=== PATIENT | female | born 1955 | race Two or more races ===

== ENCOUNTER 2025-03-28 10:00 | Inpatient (IN) | payer MEDICARE, SELFPAY ==
[2025-03-15 09:09] LABS: Hematocrit 35.0 % (37.0-47.0); Hemoglobin 11.9 g/dL (12.0-16.0); Mean Corp Hgb Conc. 34.0 g/dL (33.0-37.0); Mean Corpuscular Volume 97.5 fL (81.0-99.0); Platelet Count 306 10^3/uL (130-400); Red Cell Dist. Width 13.7 % (11.5-14.5)
[2025-03-15 09:36] LABS: ALT (SGPT) 18 U/L (0-35); AST (SGOT) 25 U/L (14-36); Albumin 4.3 g/dl (3.5-5.0); Alkaline Phosphatase 62 U/L (38-126); Blood Urea Nitrogen 10 mg/dl (7-17); Calcium 9.7 mg/dl (8.4-10.2); Carbon Dioxide 26 mmol/L (22-30); Chloride 104 mmol/L (98-107); Glucose 91 mg/dl (70-99); Potassium 4.2 mmol/L (3.5-5.1); Sodium 135 mmol/L (135-145); Total Protein 6.7 g/dl (6.3-8.2); eGFR > 60.00
[2025-03-15 13:58] VITALS: BMI 33.7
[2025-03-15 14:50] VITALS: BMI 33.7
[2025-03-28] VITALS (18 sets, daily range): BP systolic 135–219; BP diastolic 66–112; BMI 33.7
--- NOTE | 2025-03-28 09:21 | W.PN.UPDATE ---
Update Note
Progress Note Update
Lumbar spondylolisthesis s/p L4-L5 TLIF w/ Dr Ayers 03/28/25
DVT prophylaxis - b/l SCDs/TEDs
HTN - + parameters - monitor BP
Mild anemia - H&H in AM
Mild valvular disease
L hip fx s/p repair
R shoulder fx s/p repair
Hyperparathyroidism s/p parathyroidectomy
Obesity, BMI 33.7
Daily vape user
Cannibis dependence
[2025-03-28] MEDS: NORMOSOL-R/PLASMALYTE-A 1000 IV ×2 (11:45→16:53)
--- NOTE | 2025-03-28 14:59 | OR.RPT ---
Operative Report
Operative Report
HEALTH TECHNICIAN: VERONICA Loredo served as assistant credit manager for this procedure as no suitable resident or fellow was able to be identified
PREOPERATIVE DIAGNOSES:
1. Lumbar spinal stenosis L4-L5
2. Degenerative spondylolisthesis L4-5
POSTOPERATIVE DIAGNOSES:
Same
NAME OF OPERATION:
1. Posterior spinal decompression consisting of laminectomy L4-L5
2. Posterior interbody arthrodesis, L4-5 with local autograft (same incision and allograft).
3. Posterior nonsegmental instrumentation, L4-5 (Nuvasive Reline)
4. Application of biomechanical device, L4-5 (Nuvasive oblique cage).
ANESTHESIA: General endotracheal.
ESTIMATED BLOOD LOSS: 50 mL.
SPECIMENS: None.
DISPOSITION: Stable, extubated to PACU.
COMPLICATIONS: None.
NEUROMONITORING: EMG probing of pedicle, screws all with values at normal ranges from baseline the entirety of the procedure along with SSEP monitoring.
INDICATIONS: This patient is a 70 year old femalwith back pain and radiation into her left leg have worsened over the last 6 months. She has constant numbness and tingling in her left leg, and numbness down the posterior aspects of her legs. She
has difficulty sleeping due to the increased discomfort. She has been ambulating with a cane for approximately one year. Symptoms were worse upon standing or lumbar extension and she had an intact motor sensory exam of the bilateral lower
extremities. Imaging demonstrated degenerative spondylolisthesis at L4-5 . MRI demonstrated central and bilateral lateral recess stenosis at the L4-L5 level. As patient had subjective, objective and corroborative imaging evidence of a lumbosacral
radiculopathy and axial low back pain from degenerative spondylolisthesis and concomitant lumbar spinal stenosis, surgical treatment was offered. The patient understood the benefits, alternatives and the risks of the procedure, with risks including
but not limited to risk of anesthesia, infection, nerve damage, blood vessel damage, dural tear, blindness, need for further surgery, failure of instrumentation, failure of fusion, adjacent level problems. She elected to proceed after undergoing
preoperative medical clearance.
SURGICAL TECHNIQUE: The patient was identified in the preoperative holding area. The site of surgery and consent verified with the patient. She was then brought to the Operating Room by the Anesthesia and Orthopedic services. General anesthesia was
administered. The patient intubated without difficulty. RUBEN and SCDs stockings were placed for mechanical DVT prophylaxis, as well as a sterilely inserted Hwang catheter. She was also fitted with neuromonitoring leads for triggered EMG probling of
pedicle screw tracts. She was then positioned prone onto a El table with bony prominences well padded. Her abdomen hanging free, his back was prepped and draped in the usual sterile standard fashion. A hard stop surgical timeout performed with
all members of the Operating Room staff. Perioperative antibiotics given prior to surgery were started.
Intraoperative fluoroscopy was then used to localize over the bilateral L4 and L5 pedicles. Jamshidi needles were used to cannulate the pedicles, followed by placement of a guidewire checked on AP and lateral fluoroscopic imaging to ensure adequate
placement within the pedicles. These guidewires were then tacked down and the incision between the L4 and the L5 screws on the left side was widened to allow placement of upsizing screw based retractors to , centered over the L4-5 facet joint,
checked on AP and lateral fluoroscopic imaging.
Decompression was then performed by use of a neural harjeet down the lamina as well as the entirety of the inferior facet of L4 and the top half of the superior facet of L5 on the left side. This bone was saved for use as autograft later in the
procedure. On the left side, the harjeet facet of L4 was taken down with a neural harjeet. The flavum was left intact until burring was complete out to the lateral recesses, which allowed it to be teased off from the undersurface of the remaining cephalad
aspect of the L4 lamina. Multiple passes were then taken with a micro-angled curette 2 and 3 Kerrison rongeurs and large places of labeled tissue as well as hypertrophied capsular tissue were able to be removed from the bilateral lateral recesses.
The traversing nerve roots of L5 were visualized on both sides. The tube was then directed over the left L4-5 foramen. Bipolar cautery used to create excellent hemostasis of the epidural venous plexus. This allowed visualization of the L4-5 disc as
well as the traversing L5 root and the exiting L4 root. Care was taken to preserve the neural elements and a discectomy was performed first with annulotomy with a 15 blade followed by upsizing trial paddle leyda and paddle distractors. Bilateral
and superior inferior endplates were cleaned of cartilaginous tissue with straight left and right going angled curettes, as well as straight and up-biting pituitary to remove anymore disc material.
Trial cages were then placed, checked on AP and lateral fluoroscopic imaging to ensure appropriate selection of side. The actual graft was then selected in this evacuated disc space, allograft along with salvage local autograft was packed anteriorly
into the disc space, followed by the cage, which was also packed with bone graft material. The cage was then placed across the midline and expanded until its final torque.
Instrumentation was then completed, consisting of placement of the a tap and an appropriate length screw over the L4 and L5 guidewires, excellent purchase was noted. Triggered EMG of the demonstrated values all above threshold. An appropriate length
and contoured sophia was then set down on either side, set down with the appropriate set screws and finally tightened. Final AP and lateral fluoroscopic imaging demonstrated adequate positioning of all instrumentation.
The wound was then irrigated with 500 mL of normal saline. Wound was closed in sequential fashion with 0 Vicryl, 2-0 Vicryl and 3-0 Monocryl for the skin. Dry sterile dressing was applied. She was then flipped back over supine on the hospital table
and x-rayed with difficulty, had purposeful movement of all four extremities prior to leaving the Operating Room.
I attest that I present for and performed all rodrigues and critical aspects of the procedure.
[2025-03-28] MEDS: DILAUDID 0.5 MG IV (15:46)
[2025-03-28] MEDS: TORADOL 30 MG IV (15:53)
--- NOTE | 2025-03-28 17:05 | PTCARENOTE ---
Pt arrived to 2S in bed. Full assessment completed. Back DSG C/D/I. Pt reporting tingling to b/l feet, neurovascular assessment otherwise WDL. Nasal cannula maintained. IVF initiated. Bed locked and in the lowest position, safety maintained.
Oriented to room and call barry. Call barry within reach.
[2025-03-28] MEDS: NEURONTIN 600 MG PO ×2 (17:11→21:10)
[2025-03-28] MEDS: CORGARD 20 MG PO (17:11)
[2025-03-28] MEDS: ULTRAM 50 MG PO (17:12)
--- NOTE | 2025-03-28 18:25 | PTCARENOTE ---
Addendum entered by Iraida Schwarz RN 03/28/25 19:04:
Dr. Ayers notified.
Original Note:
A red vape pen fell onto the floor from pts blankets while attempting to stand pt. Two more vapes within pts possession. Security notified and secured objects per protocol. Dr Medrano notified. Care ongoing.
[2025-03-28] MEDS: SENOKOT 17.2 MG PO (19:27)
[2025-03-28] MEDS: COLACE 100 MG PO (19:27)
[2025-03-28] MEDS: ANCEF 5 IV (19:27)
[2025-03-28] MEDS: ROXICODONE 5 MG PO (21:11)
[2025-03-28] MEDS: PEPCID 20 MG PO (21:11)
[2025-03-28] MEDS: TYLENOL 1000 MG PO (21:13)
[2025-03-29] MEDS: ULTRAM 50 MG PO ×3 (00:33→12:36)
[2025-03-29] MEDS: NORMOSOL-R/PLASMALYTE-A 1000 IV (00:51)
[2025-03-29 03:10] VITALS: BP 148/75
[2025-03-29] MEDS: TYLENOL 1000 MG PO ×2 (03:59→09:06)
[2025-03-29] MEDS: ANCEF 5 IV (04:00)
[2025-03-29 06:34] LABS: Hematocrit 27.4 % (37.0-47.0); Hemoglobin 9.3 g/dL (12.0-16.0)
[2025-03-29 07:02] LABS: Blood Urea Nitrogen 13 mg/dl (7-17); Calcium 8.1 mg/dl (8.4-10.2); Carbon Dioxide 28 mmol/L (22-30); Chloride 105 mmol/L (98-107); Estimated Creatinine Clearance 72 ml/min; Glucose 94 mg/dl (70-99); Potassium 4.0 mmol/L (3.5-5.1); Sodium 132 mmol/L (135-145); eGFR > 60.00
[2025-03-29 07:20] VITALS: BP 145/88
--- NOTE | 2025-03-29 07:21 | W.PN.SP ---
Today's Communication / Plan
-
NKDA
Assessment / Plan
-
POD # 1 s/p MIS TLIF L4-5
Can discontinue checking labs
Standing lumbar radiograph today AP/Lat
Activity ad kimi, work with PT today for dispo planning.
Likely discharge home today with visiting services
Subjective / Objective
Subjective Data
Patient with appropriate incisional pain. Was up last evening to bathroom, no leg pain that she had preoperatively. No other events.
Objective Data
Vital Signs
Temp Pulse Resp BP Pulse Ox
98.1 F 64 16 148/75 99
03/29/25 03:10 03/29/25 03:10 03/29/25 03:10 03/29/25 03:10 03/29/25 03:10
Intake and Output
03/28/25 03/29/25 03/30/25
06:59 06:59 06:59
Intake Total 3420 / 3420
Balance 3420 / 3420
Intake:
Oral fluids 1920 / 1920
IV fluids (Total) 1500 / 1500
Normosol 200 / 200
Other:
Number of approximated MODERATE 1
amounts of urine
Number of approximated LARGE 1
amounts of urine
Lab Data
03/29/25 06:28
03/29/25 06:28
Physical Exam
-
Dressing intact
5/5 strength in the bilateral Q/IP/EHL/TA/GSC
w/wp
[2025-03-29] MEDS: SENOKOT 17.2 MG PO (08:29)
[2025-03-29] MEDS: CORGARD 20 MG PO (08:29)
[2025-03-29] MEDS: NEURONTIN 600 MG PO (08:29)
[2025-03-29] MEDS: COLACE 100 MG PO (08:30)
[2025-03-29] MEDS: ROXICODONE 5 MG PO (08:31)
--- NOTE | 2025-03-29 09:28 | CM ---
Addendum entered by Kiersten Shelley 03/29/25 12:16:
Patient was seen by PT/OT and recommendation is for home care, referral sent to [facility]
Plan; Home today with [facility]

Original Note:
management accounts manager reviewed patient's chart and patient is for possible discharge today. Patient lives with spouse, brother, son and daughter in law, in a 2 story home with 2 steps to enter, patient was independent with adl's and ambulation, patient has a
cane and walker in home, shower chair and stair glide to 2nd floor.
PCP: Dr. Rees
Pharmacy: [facility] at [facility]
Plan; Home will follow to see if VN services are required.
[2025-03-29 10:28] VITALS: BP 155/78; BP 200/77; PULSE 63
--- NOTE | 2025-03-29 10:59 | W.PN.ORTHO ---
Addendum entered and electronically signed by Humaira Santiago PA-C 03/29/25 13:27:
Pt will be set up w/ VN services upon d/c.
Original Note:
Today's Communication / Plan
-
Await PT and OT recs.
Monitor BP prior to d/c. Can f/u w/ PCP re: this.
Await lumbar x-ray result.
D/c later today if clinically stable.
Assessment
.
Distal Motor Intact: Yes
Dressing:
Clean, dry and intact.
Assessment:
Lumbar spondylolisthesis s/p L4-L5 TLIF w/ Dr Ayers 03/28/25
DVT prophylaxis - b/l SCDs/TEDs
HTN - + parameters - monitor BP
- Ensure adeuqate pain control w/ recent BP elevations
- SBP >165 during admission
Acute on chronic anemia - H&H 9.3 this AM
- Asymptomatic, hemodynamically stable
Mild hyponatremia, hypocalcemia - asymptomatic
Mild valvular disease
L hip fx s/p repair
R shoulder fx s/p repair
Hyperparathyroidism s/p parathyroidectomy
Obesity, BMI 33.7
Daily vape user
Cannibis dependence
Upon discussion with patient, she would prefer Tramadol over Oxycodone prn for post-surgical pain. Is aware to call surgeon's office should her pain be unmanagable w/ Tramadol, Tylenol, and home Gabapentin TID.
Plan
.
Surgery / Date: L4-L5 TLIF w/ Dr Ayers 03/28/25
DVT Prophylaxis: Other (b/l SCDs/TEDS)
Activity:
Out of bed.
PT/OT
Discharge Plan: Home
Subjective
.
.:
Patient resting comfortably in her bed.
Labile BPs this AM; will ensure adequate pain control and order Hydralazine prn for SBP >165.
Denies any new significant complaints.
Eager for potential d/c today.
Vital Signs and Labs
.
Vital Signs and Labs:
Lab Results
03/29/25 06:28
03/29/25 06:28
Temp Pulse Resp BP Pulse Ox
98.8 F 66 16 145/88 100
03/29/25 07:20 03/29/25 07:20 03/29/25 07:20 03/29/25 07:20 03/29/25 08:25
Physical Exam
-
HEENT: No pallor, cyanosis, or jaundice. Throat clear.
NECK: Supple. No JVD.
RESPIRATORY: Lungs clear to auscultation.
CVS: S1, S2 normal. RRR.�
ABDOMEN: Soft, non-tender. No distension.
EXTREMITIES: Strength equal, no calf pain with palpation/dorsiflexion. Calves soft.
RESIDENCE HALL DIRECTOR: AOx3. No focal deficits. maintenance electrician grossly intact
--- NOTE | 2025-03-29 11:09 | W.DS.TRANS ---
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
-
Discharge Instructions:
Sleep Apnea Risk Low
Discharge Diagnosis/Procedures Lumbar spondylolisthesis s/p L4-L5 TLIF w/ Dr
Andria 03/28/25
Diet Regular
Additional Diets Adequate hydration and minimize opioids to
prevent low blood pressure/dizziness.
Activity As tolerated
Additional Activity No heavy lifting >10 lbs
Driving Restrictions Not until seen by your Dr
Bathing Restrictions OK to shower in 4 days
Instructions:
Stand-Alone Forms: [facility]
Changes to Home Medications: Yes
Discharge Medications:
DC Medications w/original date entered in [employer]
gabapentin 600 mg tablet 600 mg PO TID Neurological Condition 03/21/25
acetaminophen 500 mg tablet (Tylenol Extra Strength) 1,000 mg (2 x 500 mg) PO Q6H #60 tabs 03/29/25
docusate sodium 100 mg capsule 100 mg PO BID #30 caps 03/29/25
famotidine 20 mg tablet 20 mg PO HS #30 tabs 03/29/25
magnesium hydroxide 400 mg/5 mL oral suspension (Milk of Magnesia) 30 ml PO HS PRN constipation #3,780 mL 03/29/25
nadolol 20 mg tablet 20 mg PO DAILY Blood Pressure #1 tab 03/29/25
ondansetron HCl 4 mg tablet 4 mg PO Q6H PRN nausea and vomiting #30 tabs 03/29/25
sennosides 8.6 mg tablet (Yue-helen) 17.2 mg (2 x 8.6 mg) PO BID #30 tabs 03/29/25
tramadol 50 mg tablet 50 - 100 mg (1 - 2 x 50 mg) PO Q6H PRN moderate-severe pain #30 tabs 03/29/25
Home Medication Changes
gabapentin 600 mg tablet 600 mg PO TID Neurological Condition 03/21/25
acetaminophen 500 mg tablet (Tylenol Extra Strength) 1,000 mg (2 x 500 mg) PO Q6H #60 tabs 03/29/25
docusate sodium 100 mg capsule 100 mg PO BID #30 caps 03/29/25
famotidine 20 mg tablet 20 mg PO HS #30 tabs 03/29/25
magnesium hydroxide 400 mg/5 mL oral suspension (Milk of Magnesia) 30 ml PO HS PRN constipation #3,780 mL 03/29/25
ondansetron HCl 4 mg tablet 4 mg PO Q6H PRN nausea and vomiting #30 tabs 03/29/25
sennosides 8.6 mg tablet (Yue-helen) 17.2 mg (2 x 8.6 mg) PO BID #30 tabs 03/29/25
tramadol 50 mg tablet 50 - 100 mg (1 - 2 x 50 mg) PO Q6H PRN moderate-severe pain #30 tabs 03/29/25
Pending Results: No
[2025-03-29] MEDS: APRESOLINE 5 MG IV (11:15)
[2025-03-29 11:20] VITALS: BP 158/75
[2025-03-29 13:11] VITALS: BP 158/75; PULSE 65; O2SAT 100
== END 2025-03-29 14:33 | disposition home health service (06) | DRG 451 ==
LOC: 2 SOUTH 10:00
PROVIDERS: Physician Assistant; ADMITTING PHYSICIAN Orthopaedic Surgery
PROC: 0SG00AJ Fusion of Lumbar Vertebral Joint with Interbody Fusion Device, Posterior Approach, Anterior Column, Open Approach (ICD-10-PCS; 2025-03-28)
PROC: 0ST20ZZ Resection of Lumbar Vertebral Disc, Open Approach (ICD-10-PCS; 2025-03-28)
PROC: 00NY0ZZ Release Lumbar Spinal Cord, Open Approach (ICD-10-PCS; 2025-03-28)
PROC: 0QH004Z Insertion of Internal Fixation Device into Lumbar Vertebra, Open Approach (ICD-10-PCS; 2025-03-28)
DX: M48.061 Spinal stenosis, lumbar region without neurogenic claudication (principal); E87.1 Hypo-osmolality and hyponatremia; M43.16 Spondylolisthesis, lumbar region; M54.17 Radiculopathy, lumbosacral region; D64.9 Anemia, unspecified; E83.51 Hypocalcemia; I10 Essential (primary) hypertension
CPT/HCPCS: 72100; 76000; 80048; 80053; 85014; 85018; 85027; 86850; 86900; 86901; 87070; 93005; 97116; 97163; 97166; 97530; 97535